=== PATIENT | female | born 1970 | race Caucasian/White ===

== ENCOUNTER 2024-02-29 14:19 | Outpatient (RCR) | payer OTHER, SELFPAY ==
--- NOTE | 2024-02-29 14:43 | PT.OIERPT ---
PT OP Initial Eval Patient Information Outpatient Physical Therapy Treatment Date: 02/29/24 Visit Reasons: neck pain Medical Diagnosis: neck pain Treatment Dx #1: neck pain with R UE radiculopathy Start of Care: 02/29/24 Date of Onset: 2 months ago Smoking Status Smoking Status: Never smoker Initial Assessment Subjective: Pt is 54 yr old who reports onset of intense neck pain that radiates down the R arm x2 months. Pt reports decreased R shoulder strength and ROM and hand strength when it hurts. The pain comes and goes. PMH: ACDF C6-7 in 2014 Imaging: MRI of C/S C4-C5 4 mm right paracentral subarticular osteophyte disc complex, C5-C6 advanced right moderate left neural foraminal stenosis Pt goal: to get rid of the neck and R UE pain. 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 Pt may benefit from skilled therapy for temporary relief but rehab potential for long-term goals is poor/fair due to degree of neuroforaminal stenosis at the C5-6 level. Short Term and Medical Care Administrator Goals 1. Ind with HEP 2. Decreased TTP of C/S extensors from mod to min 3. Decreased R UE pain by 50% in order to sleep x2 hrs at a time Treatment Plan ? 1. Manual therapy ? 2. Therex ? 3. Modalities as indicated, moist heat, ice, estim, mechanical traction Frequency and Duration: 1-2x a week for 6 weeks Certification Dates: 02/29/24 to 04/29/24 Procedure Charges OP PT Eval Mod Complex 30 minutes: Yes
== END 2024-03-10 23:59 | disposition home or self-care (01) ==
LOC: CPTX 14:19
PROVIDERS: PCP Neurological Surgery; Referring Provider Neurological Surgery; Visit Provider Neurological Surgery
DX: M54.12 Radiculopathy, cervical region (principal); M25.78 Osteophyte, vertebrae; M48.02 Spinal stenosis, cervical region
CPT/HCPCS: 97162

== ENCOUNTER 2024-04-09 15:30 | Outpatient (RCR) | payer OTHER, SELFPAY ==
--- NOTE | 2024-03-12 17:57 | PT.ODAYNRPT ---
PT Outpatient Daily Note OP Daily Note Outpatient Physical Therapy Treatment Date: 03/12/24 Visit Reasons: Neck pain Subjective: pt. reports stiffness in c/s and limited cervical rotation Objective: mechanical traction c/s x6 minutes MT- cross friction to c/s R levator scapulae x5 minutes Assessment: L side c/s presented with stiffness, minimized trigger point to R levator scapulae Plan: continue PT per POC Length of Time (minutes) of Treatment: 30 Minutes Procedure Charges Therapeutic Exercise 30 minutes: Yes
--- NOTE | 2024-03-21 18:03 | PT.ODAYNRPT ---
PT Outpatient Daily Note OP Daily Note Outpatient Physical Therapy Treatment Date: 03/21/24 Visit Reasons: Neck pain Subjective: Less neck pain since last visit Objective: mechanical traction c/s x6 minutes MT- cross friction to c/s R levator scapulae x5 minutes Assessment: L side c/s presented with stiffness, minimized trigger point to R levator scapulae Plan: continue PT per POC Length of Time (minutes) of Treatment: 30 Minutes Procedure Charges Therapeutic Exercise 30 minutes: Yes
--- NOTE | 2024-03-26 18:25 | PT.ODAYNRPT ---
PT Outpatient Daily Note OP Daily Note Outpatient Physical Therapy Treatment Date: 03/26/24 Visit Reasons: Neck pain Subjective: Less neck pain since last visit, sleeping better Objective: mechanical traction c/s x6 minutes Assessment: Good response to traction to lessen neck pain Plan: continue PT per POC Length of Time (minutes) of Treatment: 30 Minutes Procedure Charges Therapeutic Exercise 30 minutes: Yes
--- NOTE | 2024-04-09 16:27 | PT.ODAYNRPT ---
PT Outpatient Daily Note OP Daily Note Outpatient Physical Therapy Treatment Date: 04/09/24 Visit Reasons: Neck pain Subjective: Pt reports neck is doing better and notices less pain and decrease symptoms, feels it is due pt has been off of work for a few days now. Pt shared that she feels cervical traction is helping. Pt shared that she does not lay flat on her back at home, has to sleep in incline position. As per pt her surgeon is aware that she is using mechanical traction and recommended to pt, pt has hx of c/s fusion. Objective: Please see flow sheet for ther ex list. Assessment: Applied light mechanical traction, pt tolerates it well. Plan: Continue with POC. Length of Time (minutes) of Treatment: 30 Minutes Procedure Charges Therapeutic Exercise 30 minutes: Yes
== END 2024-04-10 23:59 | disposition home or self-care (01) ==
LOC: CPTX 15:30
PROVIDERS: PCP Neurological Surgery; Referring Provider Neurological Surgery; Visit Provider Neurological Surgery
DX: M54.12 Radiculopathy, cervical region (principal)
CPT/HCPCS: 97110

== ENCOUNTER 2024-05-03 16:30 | Outpatient (RCR) | payer OTHER, SELFPAY ==
--- NOTE | 2024-04-17 17:20 | PTNOTE_ITS ---
PT Outpatient Daily Note OP Daily Note Outpatient Physical Therapy Treatment Date: 04/17/24 Visit Reasons: Neck pain Subjective: High level of neck pain since RTW yesterday, only wants traction today [facility] at 12 lbs Assessment: Good response to mechanical traction of C/S Plan: Continue per POC Length of Time (minutes) of Treatment: 30 Minutes Procedure Charges Traction Mechanical: Yes
--- NOTE | 2024-04-24 17:37 | PT.ODAYNRPT ---
PT Outpatient Daily Note OP Daily Note Outpatient Physical Therapy Treatment Date: 04/24/24 Visit Reasons: Neck pain Subjective: High level of neck pain at times, only wants traction today Objective: [facility] traction C/S x15' at 12 lbs Assessment: Good response to mechanical traction of C/S Plan: Continue per POC Length of Time (minutes) of Treatment: 15 Minutes Procedure Charges Traction Mechanical: Yes
--- NOTE | 2024-04-26 17:41 | PT.ODAYNRPT ---
PT Outpatient Daily Note OP Daily Note Outpatient Physical Therapy Treatment Date: 04/26/24 Visit Reasons: Neck pain Subjective: High level of neck pain at times, only wants traction today Objective: [facility] traction C/S x15' at 12 lbs Assessment: Good response to mechanical traction of C/S Plan: Continue per POC Length of Time (minutes) of Treatment: 30 Minutes Procedure Charges Traction Mechanical: Yes
--- NOTE | 2024-05-03 16:56 | PT.ODAYNRPT ---
PT Outpatient Daily Note OP Daily Note Outpatient Physical Therapy Treatment Date: 05/03/24 Visit Reasons: Neck pain Subjective: Less neck pain that lasts for a couple days since starting therapy attributed to traction Objective: Mech traction C/S x15' at 15 lbs Assessment: Good response to mechanical traction of C/S to relieve neck pain Plan: Continue per POC Length of Time (minutes) of Treatment: 15 Minutes Procedure Charges Traction Mechanical: Yes
== END 2024-05-11 23:59 | disposition home or self-care (01) ==
LOC: CPTX 16:30
PROVIDERS: PCP Neurological Surgery; Referring Provider Neurological Surgery; Visit Provider Neurological Surgery
DX: M54.12 Radiculopathy, cervical region (principal)
CPT/HCPCS: 97012

== ENCOUNTER 2024-05-24 16:30 | Outpatient (RCR) | payer OTHER, SELFPAY ==
--- NOTE | 2024-05-15 09:02 | PT.ODAYNRPT ---
PT Outpatient Daily Note OP Daily Note Outpatient Physical Therapy Treatment Date: 05/14/24 Visit Reasons: Neck pain Subjective: Less neck pain that lasts for a couple days since starting therapy attributed to traction Objective: Mech traction C/S x15' at 15 lbs Assessment: Good response to mechanical traction of C/S to relieve neck pain Plan: Continue per POC Length of Time (minutes) of Treatment: 15 Minutes Procedure Charges Traction Mechanical: Yes
--- NOTE | 2024-05-22 18:19 | PT.ODAYNRPT ---
PT Outpatient Daily Note OP Daily Note Outpatient Physical Therapy Treatment Date: 05/22/24 Visit Reasons: Neck pain Subjective: Less neck pain that lasts for a couple days since starting therapy attributed to traction Objective: Mech traction C/S x15' at 15 lbs Assessment: Good response to mechanical traction of C/S to relieve neck pain Plan: Continue per POC Length of Time (minutes) of Treatment: 30 Minutes Procedure Charges Traction Mechanical: Yes Therapeutic Exercise 30 minutes: Yes
--- NOTE | 2024-05-24 17:45 | PT.ODAYNRPT ---
PT Outpatient Daily Note OP Daily Note Outpatient Physical Therapy Treatment Date: 05/24/24 Visit Reasons: Neck pain Subjective: Less neck pain that lasts for a couple days since starting therapy attributed to traction Objective: Mech traction C/S x15' at 15 lbs Assessment: Good response to mechanical traction of C/S to relieve neck pain Plan: Continue per POC Length of Time (minutes) of Treatment: 15 Minutes Procedure Charges Traction Mechanical: Yes
--- NOTE | 2024-05-24 17:56 | PT.ODS1RPT ---
PT OP Progress/Discharge Note Date of Service: 05/24/24 Progress Note/DC Note Progress Note/Discharge Note: Progress Note Patient Information Visit Reasons: Neck pain Service Continue Service or Discharge: Continue Service Status Subjective: Less neck pain that lasts for a couple days since starting therapy attributed to traction. Pt is sleeping longer since starting therapy about 3 hrs at a time which is better than before Objective: Mech traction C/S x15' at 15 lbs TTP: moderate of C/S extensors Assessment: Pt has attended 12/ visits with good response to mechanical traction of C/S to relieve neck pain for a couple days. She has met the goal of decreased R UE pain by 50% on some days, on bad days it still hurts. She would benefit from continued therapy for pain relief until she can get a traction unit for home. Objective findings are about the same. Plan: Extend POC from 12 to 18 visits in order to continue with traction. Procedure Charges Traction Mechanical: Yes
== END 2024-06-08 23:59 | disposition home or self-care (01) ==
LOC: CPTX 16:30
PROVIDERS: PCP Neurological Surgery; Referring Provider Neurological Surgery; Visit Provider Neurological Surgery
DX: M54.12 Radiculopathy, cervical region (principal); M48.02 Spinal stenosis, cervical region
CPT/HCPCS: 97012; 97110

== ENCOUNTER → 2024-06-27 | Outpatient (CLI) | payer OTHER, SELFPAY ==
[2024-06-27 11:26] LABS: Basophils # (Auto) 0.1 Thou/mm3 (0.0-0.2); Basophils % (Auto) 1 % (0-2.5); Eosinophils # (Auto) 0.1 Thou/mm3 (0.0-0.5); Eosinophils % (Auto) 2 % (0-10); Hematocrit 41.4 % (36.0-46.0); Hemoglobin 14.3 g/dL (12.0-16.0); Immature Granulocytes % (Auto) 1 % (0-0); Immature Granulocytes Auto 0.08 Thou/mm3 (0.00-0.00); Lymphocytes # (Auto) 2.3 Thou/mm3 (1.0-4.8); Lymphocytes % (Auto) 29 % (10-50); Mean Corpuscular HGB Conc 34.5 g/dl (31.0-37.0); Mean Corpuscular Hemoglobin 30.3 pg (25.0-35.0); Mean Corpuscular Volume 88 fL (80-100); Monocytes # (Auto) 0.5 Thou/mm3 (0.0-0.8); Monocytes % (Auto) 7 % (0-12); Neutrophils # (Auto) 4.7 Thou/mm3 (1.8-7.7); Neutrophils % (Auto) 61 % (37-80); Nucleated Red Blood Cell % 0 /100 WBC (0); Platelet Count 330 Thou/mm3 (140-440); RDW Standard Deviation 38.5 fL (36.4-46.3); Red Blood Count 4.72 Miln/mm3 (4.00-5.20); White Blood Count 7.8 Thou/mm3 (3.6-11.0)
[2024-06-27 11:40] LABS: Glucose Estimated Average 103 mg/dL (80-131); Hemoglobin A1C 5.2 % Hgb (4.8-6.0)
[2024-06-27 11:46] LABS: Vitamin D 25 Hydroxy Total 77.1 ng/mL (7.3-40.2)
[2024-06-27 12:01] LABS: Sed Rate (ESR) 4 mm/hr (0-30)
[2024-06-27 13:14] LABS: Alanine Aminotransferase 20 U/L (10-49); Albumin, Serum 4.5 gm/dL (3.5-5.0); Albumin/Globulin Ratio 2.1 (1.2-2.2); Alkaline Phosphatase 48 U/L (46-116); Anion Gap 6 (7-16); Aspartate Amino Transferase 22 U/L (0-34); BUN/Creatinine Ratio 29 Ratio (12-20); Bilirubin,Total 0.5 mg/dL (0.3-1.2); Blood Urea Nitrogen 23 mg/dL (9-23); Calcium 9.7 mg/dL (8.3-10.6); Calcium (Corrected) 9.7 mg/dL (8.5-10.1); Carbon Dioxide 30.7 mMol/L (20.0-31.0); Cardiac Risk Estimate 3.2 RATIO (3.7-5.6); Chloride 101 mMol/L (98-107); Cholesterol 209 mg/dL (132-200); Creatinine (Component) 0.8 mg/dL (0.6-1.3); Free T4 (Free Thyroxine) 1.03 ng/dL (0.89-1.76); Globulin 2.1 gm/dL (2.3-3.5); Glucose 85 mg/dL (74-106); HDL Cholesterol 66 mg/dL (40-60); LDL Cholesterol,Calculated 128 mg/dL (0-130); Osmolality,Calculated 278 (275-295); Potassium 4.6 mMol/L (3.4-5.1); Sodium 138 mMol/L (136-145); Thyroid Stimulating Hormone 1.75 uIU/mL (0.55-4.78); Total Protein 6.6 gm/dL (5.7-8.2); Triglycerides 75 mg/dL (30-150); eGFR > 60 See Note
[2024-06-27 13:25] LABS: C-Reactive Protein < 0.5 mg/dL (0.0-0.9)
[2024-07-09 06:53] LABS: ANA Screen, IFA NEGATIVE (NEGATIVE)
== END | disposition home or self-care (01) ==
LOC: COPL 10:42
PROVIDERS: PCP Nurse Practitioner; Referring Provider Nurse Practitioner; Visit Provider Nurse Practitioner
DX: E55.9 Vitamin D deficiency, unspecified (principal); E78.2 Mixed hyperlipidemia; I10 Essential (primary) hypertension; R21 Rash and other nonspecific skin eruption; R53.83 Other fatigue; R73.09 Other abnormal glucose
CPT/HCPCS: 36415; 80053; 80061; 82306; 83036; 84439; 84443; 85025; 85652; 86038; 86140

== ENCOUNTER 2024-07-09 16:30 | Outpatient (RCR) | payer OTHER, SELFPAY ==
--- NOTE | 2024-06-21 18:03 | PT.ODAYNRPT ---
PT Outpatient Daily Note OP Daily Note Outpatient Physical Therapy Treatment Date: 06/21/24 Visit Reasons: Neck pain Subjective: Sleeping longer with less neck pain that lasts for a couple days since starting therapy attributed to traction Objective: Mech traction C/S x15' at 15 lbs Assessment: Good response to mechanical traction of C/S to relieve neck pain Plan: Continue per POC Length of Time (minutes) of Treatment: 30 Minutes Procedure Charges Traction Mechanical: Yes
--- NOTE | 2024-07-03 18:02 | PT.ODAYNRPT ---
PT Outpatient Daily Note OP Daily Note Outpatient Physical Therapy Treatment Date: 07/03/24 Visit Reasons: Neck pain Subjective: Sleeping longer with less neck pain that lasts for a couple days since starting therapy attributed to traction Objective: Mech traction C/S x15' at 15 lbs Assessment: Good response to mechanical traction of C/S to relieve neck pain Plan: Continue per POC Length of Time (minutes) of Treatment: 15 Minutes Procedure Charges Traction Mechanical: Yes
--- NOTE | 2024-07-09 16:52 | PT.ODAYNRPT ---
PT Outpatient Daily Note OP Daily Note Outpatient Physical Therapy Treatment Date: 07/09/24 Visit Reasons: Neck pain Subjective: Sleeping longer with less neck pain that lasts for a couple days since starting therapy attributed to traction Objective: Mech traction C/S x15' at 15 lbs Assessment: Good response to mechanical traction of C/S to relieve neck pain Plan: Continue per POC Length of Time (minutes) of Treatment: 30 Minutes Procedure Charges Traction Mechanical: Yes
== END 2024-07-09 23:59 | disposition home or self-care (01) ==
LOC: CPTX 16:30
PROVIDERS: PCP Neurological Surgery; Referring Provider Neurological Surgery; Visit Provider Neurological Surgery
DX: M50.122 Cervical disc disorder at C5-C6 level with radiculopathy (principal); M99.51 Intervertebral disc stenosis of neural canal of cervical region
CPT/HCPCS: 97012

== ENCOUNTER 2024-08-01 17:00 | Outpatient (RCR) | payer OTHER, SELFPAY ==
--- NOTE | 2024-07-19 17:48 | PT.ODAYNRPT ---
PT Outpatient Daily Note OP Daily Note Outpatient Physical Therapy Treatment Date: 07/19/24 Visit Reasons: NECK PAIN Subjective: Sleeping longer with less neck pain that lasts for a couple days since starting therapy attributed to traction Objective: Mech traction C/S x15' at 15 lbs Assessment: Good response to mechanical traction of C/S to relieve neck pain Plan: Continue per POC Length of Time (minutes) of Treatment: 15 Minutes Procedure Charges Traction Mechanical: Yes
--- NOTE | 2024-07-23 17:51 | PT.ODAYNRPT ---
PT Outpatient Daily Note OP Daily Note Outpatient Physical Therapy Treatment Date: 07/23/24 Visit Reasons: NECK PAIN Subjective: Sleeping longer with less neck pain that lasts for a couple days since starting therapy attributed to traction Objective: Mech traction C/S x15' at 15 lbs Assessment: Good response to mechanical traction of C/S to relieve neck pain Plan: Reassess Length of Time (minutes) of Treatment: 30 Minutes Procedure Charges Traction Mechanical: Yes
--- NOTE | 2024-08-01 17:49 | PTNOTE_ITS ---
PT OP Progress/Discharge Note Date of Service: 08/01/24 Progress Note/DC Note Progress Note/Discharge Note: DC Note Patient Information Visit Reasons: NECK PAIN Service Continue Service or Discharge: Discharge Discharge Date: 08/01/24 Status Subjective: Less neck pain that lasts for a couple days since starting therapy attributed to traction. Pt is sleeping longer since starting therapy about 3 hrs at a time which is better than before and the R UE hardly hurts. Objective: [facility] traction C/S x15' at 15 lbs TTP: min to none of C/S extensors C/S AROM: Rotation: B: 80% of full Assessment: Pt has attended / visits with very good response to mechanical traction of C/S and has met all goals established at the evaluation. She has met the goal of decreased R UE pain by 50% and the goal of decreased TTP of C/S paraspinals from mod to min. She would benefit from a traction unit for home use. Thank you for your referrals. Plan: D/C Procedure Charges Traction Mechanical: Yes
== END 2024-08-08 23:59 | disposition home or self-care (01) ==
LOC: CPTX 17:00
PROVIDERS: PCP Neurological Surgery; Referring Provider Neurological Surgery; Visit Provider Neurological Surgery
DX: M54.12 Radiculopathy, cervical region (principal)
CPT/HCPCS: 97012

== ENCOUNTER → 2024-10-24 | Outpatient (CLI) | payer OTHER, SELFPAY ==
--- NOTE | 2024-10-24 08:30 | XR_ITS ---
Examination: Screening digital mammography, bilateral Computer aided detection 3-D breast Tomosynthesis, bilateral Date and time of exam: October 24, 2024 0841 hours Compared to mammograms dating to November 20, 2014 Indication: Screening Technique: Nonmagnified MLO, CC views of the breasts to been obtained, reconstructed from 3-D Tomosynthesis images. R2 computer aided detection program utilized for evaluation of suspicious masses and/or abnormal calcifications. 3-D Tomosynthesis images obtained. Findings: The breasts are heterogeneously dense, which may obscure small masses Numerous bilateral calcifications again depicted The breast architecture is nodular although definite suspicious masses are not depicted Impression: BI-RADS category II: Benign Findings. Recommend 1 year follow-up mammogram. Given the heterogeneously dense and nodular breast architecture, recommend baseline bilateral breast sonography follow-up
== END | disposition home or self-care (01) ==
PROVIDERS: PCP Nurse Practitioner; Referring Provider Nurse Practitioner; Visit Provider Nurse Practitioner
DX: Z12.31 Encounter for screening mammogram for malignant neoplasm of breast (principal); R92.333 Mammographic heterogeneous density, bilateral breasts; R92.1 Mammographic calcification found on diagnostic imaging of breast
CPT/HCPCS: 77063; 77067

== ENCOUNTER 2024-11-16 19:39 | Emergency (ER) | payer OTHER, SELFPAY ==
[2024-11-16 19:42] VITALS: BMI 26.1
[2024-11-16 20:05] VITALS: BP 152/77; PULSE 73; RESP 20; TEMP 37; O2SAT 95
[2024-11-16] MEDS: DEXAMETHASONE SOD PHOS INJ 10 MG/ML VIAL 20 MG PO (20:33)
[2024-11-16] MEDS: FAMOTIDINE 20 MG TABLET 40 MG PO (20:33)
--- NOTE | 2024-11-16 20:40 | EDNOTE_ITS ---
ED Allergic Reaction RME/HPI General Chief complaint: Allergic Reaction Stated complaint: ALLERGIC REACTION Time Seen by Provider: 11/16/24 20:16 Arrival date/time: 11/16/24 19:39 54F with history of HTN presents to ED with 2 days of generalized itchy rash and some throat irritation. Patient has been taking Benadryl w/o relief. Possible latex exposure. Limitations: no limitations Related Data Home Medications ?Medication ?Instructions ?Recorded ?Confirmed Oxycodone Hcl/Acetaminophen * 1 tab PO [id number] #0 tabs 06/17/13 (PERCOCET 7.5/325 *) metoprolol tartrate 25 mg tablet 25 mg PO BID #0 tabs 06/17/13 Previous Rx's ?Medication ?Instructions ?Recorded epinephrine 0.3 mg/0.3 mL See Rx Instructions .Route 0 11/22/20 injection, auto-injector (EpiPen .COMPLEX #2 ea 2-Reece) prednisone 20 mg tablet See Taper PO QDAY #7 tabs prednisone 50 mg tablet 50 mg PO QDAY 5 days #5 tabs 11/16/24 Allergies Allergy/AdvReac Type Severity Reaction Status Date / Time latex Allergy Anaphylaxis Verified 10/25/21 14:42 NKA* Allergy Uncoded 06/17/13 15:52 Review of Systems Review of Systems Systems Reviewed: All systems reviewed, normal except as documented Constitutional Constitutional: Reports system reviewed and no additional complaints, except as documented, Denies fever(s) and Denies headache(s) ENT Ears, Nose, Mouth, and Throat: Reports as per HPI, Denies disequilibrium, Denies headache(s) and Reports sore throat (irritation) Cardiovascular Cardiovascular: Reports system reviewed and no additional complaints, except as documented, Denies chest pain and Denies dyspnea Respiratory Respiratory: Reports system reviewed and no additional complaints, except as documented, Denies cough and Denies dyspnea Gastrointestinal Gastrointestinal: Reports system reviewed and no additional complaints, except as documented, Denies abdominal pain, Denies nausea and Denies vomiting Integumentary/Breasts Skin/Breast: Reports as per HPI, Reports pruritus and Reports rash Neurologic Neurologic: Reports system reviewed and no additional complaints, except as documented, Denies confusion, Denies disequilibrium and Denies headache(s) Psychiatric Psychiatric: Denies confusion Past Medical History Past Medical History CARDIAC: Negative Congestive Heart Failure RESPIRATORY: Negative Chronic Obstructive Pulmonary Disease (COPD) GENITOURINARY: Negative Renal Disease ENDOCRINE: Negative Diabetes Mellitus Type 1 or Diabetes Mellitus Type 2 Social History SMOKING STATUS: Never smoker ED Exam General Limitations: Present no limitations General appearance: Present alert and in no apparent distress Head Head exam: Present atraumatic Eye Eye exam: Present normal appearance, PERRL and EOMI ENT ENT exam: Present normal exam, normal oropharynx and mucous membranes moist Neck Neck exam: Present normal inspection, full ROM and trachea midline Chest Chest inspection: Present normal inspection and symmetric chest wall rise Respiratory Respiratory exam: Present normal lung sounds bilaterally Cardiovascular Cardiovascular exam: Present regular rate, normal rhythm and normal heart sounds Abdominal Exam Abdominal exam: Present soft and normal bowel sounds Extremities Exam Extremities exam: Present normal inspection and full ROM Back Exam Back exam: Present normal inspection and full ROM Neurological Exam Neurological exam: Present alert, oriented X3 and CN II-XII intact Psychiatric Psychiatric exam: Present normal affect and normal mood Skin Skin exam: Present warm, dry, intact, normal color and rash Course Quality Measures none Orders Category Date Time Status Dexamethasone Inj [Decadron Inj] Med 11/16/24 20:17 Discontinued 20 mg PO X1 ONE Famotidine [Pepcid] Med 11/16/24 20:17 Discontinued 40 mg PO X1 ONE Vital Signs Vital signs: Vital Signs Temperature 98.6 F 11/16/24 20:05 Pulse Rate 73 11/16/24 20:05 Respiratory Rate 20 11/16/24 20:05 Blood Pressure 152/77 H 11/16/24 20:05 Pulse Oximetry (%) 95 11/16/24 20:05 Oxygen Delivery Method Room Air 11/16/24 20:05 O2 at 95% on RA and WNLs Allergic Reaction MDM Narrative MDM Narrative:: 54F with history of HTN presents to ED with 2 days of generalized itchy rash and some throat irritation. Patient has been taking Benadryl w/o relief. Possible latex exposure. Physical exam reveals red and somewhat swollen face. Clear oropharynx and lungs. Normal WOB. Speech normal. Patient is afebrile, calm, and alert. Meds improved symptoms. 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 Patient data External records reviewed:: [facility] previous records Clinical information provided by:: patient Social determinants that could affect healthcare access:: none Patient has the following chronic illnesses:: HTN How is presenting disease/condition affected by chronic disease/condition?: uneffected by Evaluation data The following diagnostics were reviewed and interpreted by me:: other (specify) (none) Lab and/or radiology exams considered but not ordered:: not ordered Interpretation Summary: n/a Medications / Prescriptions Medications or Prescriptions considered but not ordered:: ordered Medication administrations:: Medication Administration History Discontinued Medications Dexamethasone Sodium Phosphate (Dexamethasone Sod Phos Inj 10 Mg/Ml Vial) 20 mg PO X1 ONE Stop: 11/16/24 20:18 Last Admin: 11/16/24 20:33 Dose: 20 mg Documented By: OA Famotidine (Famotidine 20 Mg Tablet) 40 mg PO X1 ONE Stop: 11/16/24 20:18 Last Admin: 11/16/24 20:33 Dose: 40 mg Documented By: JIAN above Consultations Consultation(s) initiated? (list below): No Diagnosis Differential Diagnosis allergic reaction: anaphylaxis, allergic reaction, angioedema, contact dermatitis, adverse reaction to drug, viral enanthem and urticaria Most likely diagnosis given after review of the tests above:: allergic reaction Admission Indicated Admission indicated?: not indicated Admission Request Was there a request for admission?: No Disposition Plan Disposition Plan: Discharge Discharge Attestation Discharge Attestation: The patient and all family members were given an opportunity to ask questions and understood the discharge instructions. Discharge instructions specifically effects, indications for sooner follow up or return to the emergency department, and the expected course of current diagnosis. Patient condition: Stable Discharge Plan Plan Patient Disposition: HOME (Self Care) Discharge Disposition comment: Stable Prescriptions/Referrals Prescriptions/Med Rec: New prednisone 50 mg tablet 50 mg PO QDAY 5 Days Qty: 5 0RF No Action metoprolol tartrate 25 MG tablet 25 mg PO BID Qty: 0 Oxycodone Hcl/Acetaminophen * (PERCOCET 7.5/325 *) 1 TAB tablet 1 tab PO [id number] Qty: 0 epinephrine [EpiPen 2-Reece] 0.3 mg/0.3 mL auto-injector See Rx Instructions .ROUTE .COMPLEX Qty: 2 0RF Rx Instructions: use as directed on pack prednisone 20 mg tablet See Taper PO QDAY Qty: 7 0RF Taper: Prednisone Taper 20 mg DAILY for 2 Days and 0 Hour 10 mg DAILY for 2 Days and 0 Hour 5 mg DAILY for 7 Days and 0 Hour Rx Instructions: 2 tabs daily for 2 days half tab daily for 2 days then a quarter tab daily for 4 days Referrals: Gela Estrada FNP [Primary Care Provider] - In 1 week Problem List Clinical Impression: Allergic reaction Patient/Caregiver Discharge Instructions Education Materials: ED General Allergic Reactions Additional Instructions: Please follow-up with PCP within 24-48 hours and return immediately if symptoms worsen. Take OTC antihistamine as needed until symptoms resolve. Finish entire steroid c ourse. Print Language: Tunisian Stand Alone Forms: Patient Portal Info Letter JOSE/ALEXANDRA Supervising Physician JOSE/ALEXANDRA Supervising Physician: Dr. Ge
== END 2024-11-16 22:11 | disposition home or self-care (01) ==
PROVIDERS: Emergency Provider Emergency Medicine; PCP Nurse Practitioner
DX: R21 Rash and other nonspecific skin eruption (principal)
CPT/HCPCS: 99283; J1100; A9270

== ENCOUNTER → 2025-01-08 | Outpatient (CLI) | payer OTHER, SELFPAY ==
[2025-01-08 07:33] LABS: Misc Send Out* See Sep Rpt
[2025-01-08 09:06] LABS: Basophils # (Auto) 0.1 Thou/mm3 (0.0-0.2); Basophils % (Auto) 1 % (0-2.5); Eosinophils # (Auto) 0.1 Thou/mm3 (0.0-0.5); Eosinophils % (Auto) 2 % (0-10); Hematocrit 36.5 % (36.0-46.0); Hemoglobin 12.3 g/dL (12.0-16.0); Immature Granulocytes Auto 0.05 Thou/mm3 (0.00-0.00); Lymphocytes # (Auto) 1.8 Thou/mm3 (1.0-4.8); Lymphocytes % (Auto) 28 % (10-50); Mean Corpuscular HGB Conc 33.7 g/dl (31.0-37.0); Mean Corpuscular Hemoglobin 30.8 pg (25.0-35.0); Mean Corpuscular Volume 91 fL (80-100); Monocytes # (Auto) 0.5 Thou/mm3 (0.0-0.8); Monocytes % (Auto) 8 % (0-12); Neutrophils # (Auto) 3.8 Thou/mm3 (1.8-7.7); Neutrophils % (Auto) 60 % (37-80); Nucleated Red Blood Cell # 0.00 Thou/mm3 (0.00-0.00); Nucleated Red Blood Cell % 0 /100 WBC (0); Platelet Count 282 Thou/mm3 (140-440); RDW Standard Deviation 39.1 fL (36.4-46.3); Red Blood Count 4.00 Miln/mm3 (4.00-5.20); White Blood Count 6.4 Thou/mm3 (3.6-11.0)
[2025-01-08 09:28] LABS: Vitamin D 25 Hydroxy Total 57.9 ng/mL (7.3-40.2)
[2025-01-08 09:47] LABS: Alanine Aminotransferase 15 U/L (10-49); Albumin, Serum 4.3 gm/dL (3.5-5.0); Albumin/Globulin Ratio 2.4 (1.2-2.2); Anion Gap 7 (7-16); Aspartate Amino Transferase 22 U/L (0-34); BUN/Creatinine Ratio 22 Ratio (12-20); Bilirubin,Total 0.5 mg/dL (0.3-1.2); Blood Urea Nitrogen 20 mg/dL (9-23); C-Reactive Protein < 0.5 mg/dL (0.0-0.9); Calcium 9.6 mg/dL (8.3-10.6); Calcium (Corrected) 9.6 mg/dL (8.5-10.1); Carbon Dioxide 28.2 mMol/L (20.0-31.0); Chloride 104 mMol/L (98-107); Creatinine (Component) 0.9 mg/dL (0.6-1.3); Free T4 (Free Thyroxine) 1.22 ng/dL (0.89-1.76); Globulin 1.8 gm/dL (2.3-3.5); Glucose 93 mg/dL (74-106); Osmolality,Calculated 280 (275-295); Potassium 3.8 mMol/L (3.4-5.1); Sodium 139 mMol/L (136-145); Thyroid Stimulating Hormone 2.86 uIU/mL (0.55-4.78); Total Protein 6.1 gm/dL (5.7-8.2); eGFR > 60 See Note
[2025-01-08 10:29] LABS: Alkaline Phosphatase 34 U/L (46-116)
[2025-01-08 11:05] LABS: Urea Breath Test Negative (Negative)
[2025-01-08 11:48] LABS: Cocci Serology, IgM Negative (Negative)
[2025-01-09 10:48] LABS: Cocci Serology, IgG Negative (Negative)
[2025-01-12 22:03] LABS: Sm Antibody <1.0 NEG AI (<1.0 NEGATIVE)
[2025-01-14 07:24] LABS: ANA Screen, IFA NEGATIVE (NEGATIVE); CCP Antibody (IgG)* <16 Units; Complement Component C3* 121 mg/dL (83-193); Complement Component C4c* 22 mg/dL (15-57); DNA (ds) Antibody* <1 IU/mL; IgE, Serum* 30 kU/L (114 OR LESS); Scl-70 Antibody* <1.0 NEG AI (<1.0 NEGATIVE); Sm/RNP Antibody <1.0 NEG AI (<1.0 NEGATIVE)
== END | disposition home or self-care (01) ==
PROVIDERS: PCP Nurse Practitioner; Referring Provider Allergy & Immunology; Visit Provider Allergy & Immunology
DX: L50.0 Allergic urticaria (principal); J30.1 Allergic rhinitis due to pollen; R23.4 Changes in skin texture; K29.00 Acute gastritis without bleeding
CPT/HCPCS: 36415; 80053; 82306; 82785; 83013; 83014; 84439; 84443; 85025; 86038; 86140; 86160; 86200; 86225; 86235; 86331; 86635

== ENCOUNTER → 2025-01-14 | Outpatient (CLI) | payer OTHER, SELFPAY ==
--- NOTE | 2025-01-14 15:45 | XR_ITS ---
Examination: Breast ultrasound complete, bilateral Date and time of exam: January 14, 2025, 1600 hours INDICATIONS: Left breast pain several years Technique: Real-time grayscale ultrasonographic imaging bilateral breasts, including all 4 quadrants as well as nipple retroareolar and axillary regions. Findings: Sonographic images right breast Multiple benign cysts 3:00 nodule circumscribed 4 x 4 millimeter 11:00 nodule circumscribed 5 x 4 mm Sonographic images left breast Benign cysts 11:00 circumscribed nodule 4 x 3 mm Smaller bilateral cysts and nodules IMPRESSION: BI-RADS Category 3: Probably benign findings Recommend 1 additional 6 month bilateral breast sonography follow-up to confirm stability of multiple solid nodules described above
== END | disposition home or self-care (01) ==
LOC: CDIM 15:33
PROVIDERS: Referring Provider Nurse Practitioner; Visit Provider Nurse Practitioner
DX: N63.15 Unspecified lump in the right breast, overlapping quadrants (principal); N63.22 Unspecified lump in the left breast, upper inner quadrant; N63.11 Unspecified lump in the right breast, upper outer quadrant
CPT/HCPCS: 76641

== ENCOUNTER → 2025-03-01 | Outpatient (CLI) | payer OTHER, SELFPAY ==
--- NOTE | 2025-03-01 09:09 | XR_ITS ---
EXAMINATION: PA lateral chest 2 views TECHNIQUE: Upright PA lateral chest 2 views Date and time: Informed 2024, 0950 hours, comparison January 24, 2020 INDICATIONS: Coughing shortness of breath beginning 7 days ago FINDINGS: Normal heart size Lungs are clear. Prominent osteopenia IMPRESSION: No active disease
[2025-03-01 09:13] LABS: Misc Send Out* See Sep Rpt
[2025-03-01 09:49] LABS: Glucose Estimated Average 108 mg/dL (80-131); Hemoglobin A1C 5.4 % Hgb (4.8-6.0)
[2025-03-01 10:00] LABS: Alanine Aminotransferase 23 U/L (10-49); Albumin, Serum 4.7 gm/dL (3.5-5.0); Albumin/Globulin Ratio 2.6 (1.2-2.2); Alkaline Phosphatase 42 U/L (46-116); Anion Gap 8 (7-16); Aspartate Amino Transferase 22 U/L (0-34); BUN/Creatinine Ratio 26 Ratio (12-20); Bilirubin,Total 0.4 mg/dL (0.3-1.2); Blood Urea Nitrogen 26 mg/dL (9-23); Calcium 10.1 mg/dL (8.3-10.6); Calcium (Corrected) 10.1 mg/dL (8.5-10.1); Carbon Dioxide 32.5 mMol/L (20.0-31.0); Chloride 102 mMol/L (98-107); Creatinine (Component) 1.0 mg/dL (0.6-1.3); Globulin 1.8 gm/dL (2.3-3.5); Glucose 95 mg/dL (74-106); Osmolality,Calculated 287 (275-295); Potassium 3.7 mMol/L (3.4-5.1); Sodium 142 mMol/L (136-145); Total Protein 6.5 gm/dL (5.7-8.2); eGFR > 60 See Note
[2025-03-05 06:38] LABS: Insulin* 11.0 uIU/mL (< OR = 18.4)
== END | disposition home or self-care (01) ==
LOC: COPL 08:50
PROVIDERS: PCP Nurse Practitioner; Referring Provider Nurse Practitioner Family; Visit Provider Internal Medicine
DX: R09.89 Other specified symptoms and signs involving the circulatory and respiratory systems (principal); K76.0 Fatty (change of) liver, not elsewhere classified
CPT/HCPCS: 36415; 71046; 80053; 83036; 83525